=== PATIENT | female | born 1955 | race American Indian/Alaskan Native ===

== ENCOUNTER → 2022-01-23 | Outpatient (CLI) | payer OTHER | END | disposition home or self-care (01) | LOC: LAB 10:00 → LAB SHORT 10:00 | PROVIDERS: Nurse Practitioner Family | DX: Z01.419 Encounter for gynecological examination (general) (routine) without abnormal findings (principal) | CPT/HCPCS: G0145 ==

== ENCOUNTER 2022-12-23 07:44 | Day surgery (SDC) | payer MEDICARE, OTHER ==
[~2022-12-23] VITALS: Ht 152.4 cm; Wt 51.5 kg
[2022-12-23] MEDS ORDERED: CALCIUM 500 MG1 EAC2 (08:27)
[2022-12-23] MEDS ORDERED: ALBU90OI (08:27)
[2022-12-23] MEDS ORDERED: [UNRECOGNIZED DRUG - OTHER] (08:28)
[2022-12-23] MEDS ORDERED: Zinc 15 MG Loze15 MG (08:29)
[2022-12-23] MEDS ORDERED: LEVSOD25 (08:29)
[2022-12-23] MEDS ORDERED: MULTIPLE VITAM1 EACH (08:29)
[2022-12-23 10:17] VITALS: BP 106/59
--- NOTE | 2022-12-23 10:19 | NUR ---
12/23/22 1019 Leslie Zaragoza IV DC'D, CATH INTACT. PT TOLERATED WELL. COBAN/GAUZE IN PLACE
== END 2022-12-23 10:19 | disposition home or self-care (01) ==
LOC: ORSCSDS 07:44
PROVIDERS: Specialist
PROC: 0D758ZZ Dilation of Esophagus, Via Natural or Artificial Opening Endoscopic (ICD-10-PCS; principal; 2022-12-23 09:30)
PROC: 0DB58ZX Excision of Esophagus, Via Natural or Artificial Opening Endoscopic, Diagnostic (ICD-10-PCS; principal; 2022-12-23 09:30)
DX: R13.10 Dysphagia, unspecified (principal); K20.90 Esophagitis, unspecified without bleeding; K22.2 Esophageal obstruction; Z79.899 Other long term (current) drug therapy
CPT/HCPCS: 88305; J2704; J7120

== ENCOUNTER → 2024-09-27 | Outpatient (CLI) | payer MEDICARE, OTHER ==
[~2024-09-27] MED LIST: ALBU90OI; CALCIUM 500 MG1 EAC2; LEVSOD25; MULTIPLE VITAM1 EACH; Zinc 15 MG Loze15 MG; [UNRECOGNIZED DRUG - OTHER]
== END ==
LOC: LAB SHORT 11:33 → LAB 11:33
DX: R30.0 Dysuria (principal)
CPT/HCPCS: 87077; 87086; 87186